=== PATIENT | male | born 1995 | race Caucasian/White ===

== ENCOUNTER 2018-04-29 08:51 | Emergency (ER) | payer BC ==
[2018-04-29 08:56] VITALS: BP 140/85
--- NOTE | 2018-04-29 09:24 | EDPHY ---
H & P Smoking Status: Never smoked Time Seen by Provider: 04/29/18 09:05 HPI/ROS: CLINICAL IMPRESSION: Right knee laceration, right elbow abrasion ASSESSMENT/PLAN: 23-year-old male presents to the emergency department after falling off his skateboard and landing on his right knee and elbow. He did not hit his head. Was able to ambulate to his class and called super to come to the ER. Full range of motion of the knee with no radiologic evidence of underlying fracture or foreign body. No clinical exam to suggest quadriceps tendon injury. Full range of motion of the elbow with no suturable laceration. Tetanus up-to-date. Wound repaired as per chart notes below. Wound care discussed, sinus symptoms of infection reviewed, warning signs return to ED sooner alignment discharge. DIFFERENTIAL DX: Differential includes but not limited to acute fracture, foreign body, laceration, quadriceps tendon injury, laceration of olecranon bursa or patellar bursa. ED PROCEDURES: Laceration Repair Verbal consent obtained by patient. Risks discussed, including but not limited to infection, pain, retained foreign body, need for additional repair, poor cosmetic result, tendon damage, nerve damage, poor wound healing, vascular damage. Alternatives to repair discussed. [place] protocol used to establish correct patient, procedure, equipment, supportability engineer, and site. Anesthesia obtained by none, topical application, local infiltration, nerve block. Anesthetized with 0.5% bupivacaine with epinephrine. Laceration location right knee, length 1.5 cm, depth 4 mm, Repair type simple. Patient was prepped and draped in usual sterile fashion. Hemostasis achieved with direct pressure. Wound explored through full range of motion and entire depth of wound probed and visualized with gloved finger. No suspicion for nerve damage, tendon damage, underlying fracture, vascular damage, foreign body, or contamination. Area was cleansed with Shur-Clens and irrigated with sterile saline as per protocol. No foreign body or material removed. Repair method 4-0 Prolene sutures, simple interrupted. Six of sutures placed. Well aligned, closely approximated. wound was dressed with bacitracin and Band- Aid. Patient tolerated well with no immediate complications. Wound care: Clean and dry x 24 hours, gently clean with soap and water, cover with topical antibiotic ointment/bandage. Suture/Staple removal: 10-14 Days ED COURSE: 9:45 a.m.: Preliminary review of x-ray shows no acute fracture or foreign body. CHIEF COMPLAINT: Right knee laceration, right elbow abrasion HPI: This is a 23-year-old male who presents to the emergency department with an acute right knee laceration and elbow abrasion after he was riding his skateboard to classes, hit something on the sidewalk and fell. Patient did not hit his head. He sustained abrasions to his elbow and a laceration to his knee but reports no pain with movement of the elbow or knee. He does have mild pain with ambulation. Tetanus is up-to-date. No injury to the ankle or hip. PAST MEDICAL HISTORY: None reported Pertinent Past Surgical History: None reported Social History: Student at [employer] REVIEW OF SYSTEMS: All other systems negative Constitutional: No fever, no chills Musculoskeletal: No deformity, + joint pain Skin: Positive laceration, color change or open wounds. Neurological: No sensory loss or weakness. PHYSICAL EXAM: General Appearance: Alert, oriented, appropriate for age, cooperative, NAD, well hydrated, non-toxic appearing, VSS, no hypoxia. Neurological: Alert and oriented x 3, normal sensation and strength of extremities Skin: Superficial abrasion to the right elbow near the olecranon with no suturable laceration. 1.5 cm laceration to the dorsum of the right knee superior to the patella Musculoskeletal: Full range of motion of the knee and elbow. No clinical indication of patellar dislocation. No clinical indication of quadriceps tendon injury. Ambulation not tested MEDICAL DECISION MAKING: Patient was seen independently.Secondary supervising physician at time of evaluation was Dr. Smith. Diagnosis: Right knee laceration, right elbow abrasion. New, requires workup Summary: See assessment and plan for summary of ED visit Independent visualization of images, tracing, or specimens yes. Patient Progress improved. (Luis Alfredo James) Constitutional: Initial Vital Signs Temperature (C) 36.3 C 04/29/18 08:54 Heart Rate 71 04/29/18 08:54 Respiratory Rate 18 04/29/18 08:54 Blood Pressure 140/85 H 04/29/18 08:54 O2 Sat (%) 98 04/29/18 08:54 O2 Delivery Mode Room Air Allergies/Adverse Reactions: No Known Allergies Allergy (Unverified 04/29/18 08:54) Home Medications: Medication Instructions Recorded NK [No Known Home Meds] 04/29/18 MDM/Departure - MDM Imaging: I viewed and interpreted images myself - [facility] ED Course/Re-evaluation: I did not see this patient while he was in the emergency department. However his care was discussed with the PA while the patient was in the department. I agree with treatment plan and management (LuisDequan Gabriel) - Depart Disposition: Home, Routine, Self-Care Clinical Impression: Laceration of knee Condition: Good Instructions: Laceration (ED) Additional Instructions: We did not identify fracture or foreign body on the x-ray of her knee. Please have sutures/mihai removed in 10-14 Days. You can return to the emergency department or your primary care for suture/staple removal. Avoid submerging sutures/mihai underwater for prolonged period of time until removed. Keep wound clean and dry, cover with antibiotic ointment and Band-Aid. Return to emergency department for redness, swelling, discharge, warmth to the skin, or any other concerns for infection. Stand Alone Forms: School Excuse, Statement of Treatment Referrals: NONE *PRIMARY CARE P,. [Primary Care Provider] - As per Instructions
== END 2018-04-29 09:45 | disposition home or self-care (01) ==
PROC: 0HQKXZZ Repair Right Lower Leg Skin, External Approach (ICD-10-PCS; principal; 2018-04-29)
DX: S81.011A Laceration without foreign body, right knee, initial encounter (principal); S50.311A Abrasion of right elbow, initial encounter; V00.131A Fall from skateboard, initial encounter; Y92.480 Sidewalk as the place of occurrence of the external cause